=== PATIENT | female | born 1965 | race Caucasian/White ===

== ENCOUNTER 2023-03-28 17:36 | Emergency (ER) | payer BC ==
[2023-03-28 17:42] VITALS: BP 112/75; PULSE 69; RESP 18; TEMP 98; BMI 28.7
[2023-03-28] MEDS ORDERED: FLUORESCEIN NA 1 EA STRIP OD ONE (18:13)
[2023-03-28] MEDS ORDERED: TETRACAINE 0.5% HCL 0.6ML DROPPER.BOTTLE OD ONE (18:15)
[2023-03-28] MEDS ORDERED: FLUORESCEIN NA 1 EA STRIP ONE (18:26)
[2023-03-28] MEDS ORDERED: TETRACAINE 0.5% OPHTH SOLN 2 ML BOTTLE ONE (18:27)
== END 2023-03-28 18:48 | disposition home or self-care (01) ==
LOC: JERFT 17:36 → JER 17:36 → JERFT 18:48
DX: H57.89 Other specified disorders of eye and adnexa (principal); H11.422 Conjunctival edema, left eye; H53.142 Visual discomfort, left eye; H11.32 Conjunctival hemorrhage, left eye
CPT/HCPCS: 99283-25